=== PATIENT | female | born 1990 | race Two or more races ===

== ENCOUNTER 2019-04-29 17:50 | Emergency (ER) | payer MEDICAID ==
[~2019-04-29] VITALS: Ht 167.6 cm; Wt 100.0 kg
[2019-04-29] MEDS ORDERED: ALPRAZOLAM 0.5 MG TABLET PO ONE (19:15)
[2019-04-29 20:20] VITALS: BP 118/77
== END 2019-04-29 20:20 | disposition home or self-care (01) ==
LOC: ER 17:50
DX: F41.8 Other specified anxiety disorders (principal); R03.0 Elevated blood-pressure reading, without diagnosis of hypertension
CPT/HCPCS: 99284

== ENCOUNTER 2023-03-02 13:37 | Emergency (ER) | payer MEDICAID ==
[~2023-03-02] VITALS: Ht 162.6 cm; Wt 102.0 kg
[2023-03-02 14:07] VITALS: BP 131/81; PULSE 81; TEMP 98.4; O2SAT 97
[2023-03-02] MEDS ORDERED: MECLIZINE 25MG TABLET PO ONE (17:45)
[2023-03-02 18:52] LABS: BASOPHILS % 0.8 % (0.0-2.0); EOSINOPHILS % 2.8 % (0.0-5.0); HEMATOCRIT. 43.5 % (36.0-48.0); HEMOGLOBIN. 14.4 g/dL (12.0-16.0); LYMPHOCYTES % 34.2 % (20.0-50.0); MEAN CORPUSCULAR HEMOGLOBIN 31.3 pg (28.0-32.0); MEAN CORPUSCULAR HGB CONC 33.1 g/dL (31.0-37.0); MEAN CORPUSCULAR VOLUME 94.7 fL (81.0-99.0); MEAN PLATELET VOLUME 8.3 fl (7.4-10.4); MONOCYTES % 4.4 % (2.0-8.0); NEUTROPHILS % 57.8 % (40.0-76.0); PLATELET 328 x1000/uL (130-400); RED BLOOD CELL COUNT 4.59 mill/uL (4.2-5.4); RED CELL DISTRIBUTION WIDTH 13.2 % (11.6-14.6); WHITE BLOOD COUNT 10.5 x1000/uL (4.5-11.0)
[2023-03-02 19:03] LABS: HCG SCREEN NEGATIVE
[2023-03-02 19:08] LABS: ALANINE AMINOTRANSFERASE 18 IU/L (10-49); ALBUMIN 4.6 g/dL (3.2-4.8); ASPARTATE AMINOTRANSFERASE 16 IU/L (<34); BILIRUBIN TOTAL 0.6 mg/dL (0.1-1.0); CALCIUM 9.5 mg/dL (8.7-10.4); CARBON DIOXIDE 27 mEq/L (21-32); CHLORIDE 103 mEq/L (98-107); CREATININE 0.7 mg/dL (0.6-1.0); GLUCOSE 89 mg/dL (70-105); POTASSIUM 3.7 mEq/L (3.5-5.1); SODIUM 138 mEq/L (136-145); UREA NITROGEN BLOOD 6 mg/dL (9-23)
[2023-03-02] MEDS ORDERED: MECL-299 PO (19:09)
== END 2023-03-02 19:45 | disposition home or self-care (01) ==
LOC: ER 13:37
DX: R42 Dizziness and giddiness (principal); F41.9 Anxiety disorder, unspecified; Z98.890 Other specified postprocedural states
CPT/HCPCS: 99283; 80053; 84703; 85025; 36415; J8597

== ENCOUNTER 2023-05-20 13:33 | Emergency (ER) | payer OTHER ==
[~2023-05-20] VITALS: Ht 162.6 cm; Wt 100.0 kg
[~2023-05-20 13:33] MED LIST: MECL-299 PO
[2023-05-20 13:36] VITALS: O2SAT 100
[2023-05-20] MEDS: MAGNESIUM/ALUMINUM HYDROXIDE/SIMETHICONE 30ML UDC PO STA (14:37)
[2023-05-20] MEDS: FAMOTIDINE 20MG TABLET PO ONE (14:45)
[2023-05-20 15:41] LABS: CLARITY URINE CLOUDY (CLEAR); COLOR URINE DARK YELLOW (YELLOW); GLUCOSE URINE NEGATIVE (NEGATIVE); KETONES URINE TRACE (NEGATIVE); LEUKOCYTE ESTERASE URINE TRACE (NEGATIVE); NITRITE URINE NEGATIVE (NEGATIVE); OCCULT BLOOD URINE NEGATIVE (NEGATIVE); PROTEIN URINE TRACE (NEGATIVE); SPECIFIC GRAVITY URINE 1.029 (1.005-1.030)
[2023-05-20 15:42] LABS: BASOPHILS % 0.4 % (0.0-2.0); DIFFERENTIAL COMMENT 1; EOSINOPHILS % 2.3 % (0.0-5.0); HEMATOCRIT. 41.1 % (36.0-48.0); LYMPHOCYTES % 30.2 % (20.0-50.0); MEAN CORPUSCULAR HEMOGLOBIN 31.8 pg (28.0-32.0); MEAN CORPUSCULAR HGB CONC 34.1 g/dL (31.0-37.0); MEAN CORPUSCULAR VOLUME 93.1 fL (81.0-99.0); MEAN PLATELET VOLUME 8.7 fl (7.4-10.4); MONOCYTES % 6.4 % (2.0-8.0); NEUTROPHILS % 60.7 % (40.0-76.0); PLATELET 296 x1000/uL (130-400); RED BLOOD CELL COUNT 4.42 mill/uL (4.2-5.4); RED CELL DISTRIBUTION WIDTH 12.7 % (11.6-14.6); WHITE BLOOD COUNT 7.4 x1000/uL (4.5-11.0)
[2023-05-20 15:54] LABS: HCG SCREEN NEGATIVE
[2023-05-20 15:56] LABS: ALANINE AMINOTRANSFERASE 28 IU/L (10-49); ALBUMIN 4.3 g/dL (3.2-4.8); ASPARTATE AMINOTRANSFERASE 21 IU/L (<34); BILIRUBIN TOTAL 0.2 mg/dL (0.1-1.0); CALCIUM 8.9 mg/dL (8.7-10.4); CARBON DIOXIDE 30 mEq/L (21-32); CHLORIDE 105 mEq/L (98-107); CREATININE 0.6 mg/dL (0.6-1.0); ETHANOL BLOOD < 10 mg/dL (<10); GLUCOSE 94 mg/dL (70-105); POTASSIUM 3.4 mEq/L (3.5-5.1); PROTEIN TOTAL 7.1 g/dL (6.0-8.3); SODIUM 139 mEq/L (136-145); TROPONIN I HIGH SENSITIVITY < 4 ng/L (3.0-34); UREA NITROGEN BLOOD 7 mg/dL (9-23)
[2023-05-20 16:09] LABS: BACTERIA URINE 3+; RBC URINE 0-2 /hpf (0-2); SQUAMOUS EPITHELIAL CELL URINE 2+ /lpf (RARE/1+)
[2023-05-20 18:10] VITALS: BP 124/72; PULSE 95; RESP 19; TEMP 98.8
== END 2023-05-20 19:18 | disposition home or self-care (01) ==
LOC: ER 13:33
DX: R52 Pain, unspecified (principal); F41.9 Anxiety disorder, unspecified; Z98.890 Other specified postprocedural states; Z20.822 Contact with and (suspected) exposure to COVID-19
CPT/HCPCS: 36415; 80053; 80320; 81003; 84484; 84703; 85025; 87426; 87804; 93005; 99284; G0480

== ENCOUNTER 2023-08-19 19:13 | Emergency (ER) | payer OTHER ==
[~2023-08-19] VITALS: Ht 162.6 cm; Wt 95.0 kg
[2023-08-19 19:18] VITALS: BP 129/73; PULSE 95; RESP 20; TEMP 98.7; O2SAT 98
== END 2023-08-19 23:12 | disposition left against medical advice (07) ==
LOC: ER 19:13
DX: F41.9 Anxiety disorder, unspecified (principal); Z53.21 Procedure and treatment not carried out due to patient leaving prior to being seen by health care provider